=== PATIENT | female | born 1990 | race American Indian/Alaskan Native ===

== ENCOUNTER 2018-06-09 10:08 | Outpatient (CLI) | payer OTHER ==
--- NOTE | 2018-06-10 02:12 | XRay Report ---
PROCEDURE: XR SPINE LUMBOSACRAL 2-3V HISTORY: KYPHOSIS SCOLIOSIS FINDINGS: AP and lateral views of the lumbar spine were acquired. No fracture is seen in the lumbar s pine. The intervertebral disc space height preserved. There is scoliosis convex left at L4 of approxi mately 10 degrees. There are rods on the thoracic spine terminating inferiorly at T12. IMPRESSION: No fracture is seen in the lumbar spine This document is electronically signed by Celso Garrido MD., June 10 2018 02:10:06 AM ET
== END 2018-06-09 10:09 | disposition home or self-care (01) ==
LOC: XRAY 10:08
PROVIDERS: ATTEND Internal Medicine
DX: Z02.71 Encounter for disability determination (principal); M41.9 Scoliosis, unspecified; K21.9 Gastro-esophageal reflux disease without esophagitis
CPT/HCPCS: 72100

== ENCOUNTER 2021-08-23 20:07 | Emergency (ER) | payer MEDICAID, OTHER ==
[2021-08-24] MEDS ORDERED: KETOROLAC 10 MG TAB PO ONE (04:57)
[2021-08-24 05:33] LABS: Hematocrit 31.1 % (30.3-42.9); Hemoglobin 9.9 gm/dl (10.1-14.3); Mean Corpuscular HGB Conc 32 % (30-34); Platelet Count 150 K/mm3 (140-440); Red Blood Count 4.71 M/mm3 (3.65-5.03)
[2021-08-24 05:38] LABS: Mean Corpuscular Volume 66 fl (79-97)
[2021-08-24 05:39] LABS: Red Cell Distribution Width 22.7 % (13.2-15.2)
[2021-08-24 05:50] LABS: Blood Urea Nitrogen 11 mg/dL (7-17); Calcium 9.2 mg/dL (8.4-10.2); Hemolysis Index 0
--- NOTE | 2021-08-24 05:55 | XRay Report ---
LUMBAR SPINE 2 VIEWS INDICATION / CLINICAL INFORMATION: pain. COMPARISON: None available. FINDINGS: VERTEBRAE: No acute fracture. No significant malalignment. DISC SPACES / FACET JOINTS:No significant abnormality. PARASPINAL SOFT TISSUES:No significant abnormality. ADDITIONAL FINDINGS: Posterior fusion hardware with pedicle screws at T11 and T12. IMPRESSION: 1. No significant degenerative changes, no acute findings. Signer Name: Phani Lal II, MD Signed: 08/24/2021 5:50 AM Workstation Name: [id number]
[2021-08-24 05:57] LABS: BUN/Creatinine Ratio 18
--- NOTE | 2021-08-24 06:15 | Emergency Department Report ---
ED Back Pain/Injury HPI - General Chief Complaint: Pain General Stated Complaint: CHRONIC PAIN Time Seen by Provider: 08/24/21 04:25 Source: patient Limitations: No Limitations - History of Present Illness Initial Comments: 30 yo female with no pmh presents to ed for evaluation of back pain and fever. She states that in 2016, she had some illegal silicone injections in her margot ateral buttock then started to have problems with them in 2019. She states that over the past few months, the silicone feels like it has moved up to her lower back, and she is now having lower back pain and intermittent fevers. She denies injury, trauma, dysuria, abdominal pain, nausea, and vomiting. MD Complaint: back pain -: Gradual, week(s) (5-6) Similar Symptoms Previously: Yes Radiation: none Severity: severe Severity scale (0 -10): 8 Quality: aching Consistency: constant Associated Symptoms: denies: weakness, chest pain, numbness, difficulty walking, difficulty urinating, diaphoresis, headaches, abdominal pain, loss of appetite, malaise, nausea/vomiting, rash, seizure, shortness of breath - Related Data Previous Rx's Medication Instructions Recorded Last Taken Type Ibuprofen [Motrin 800 MG tab] 800 mg PO Q6H PRN #30 tablet 09/08/14 Unknown Rx oxyCODONE /ACETAMINOPHEN [Percocet 1 tab PO Q4HR #30 tablet 09/08/14 Unknown Rx 5/325 mg] Naproxen [Naprosyn] 500 mg PO BID #14 tab 08/24/21 Unknown Rx Allergies Allergy/AdvReac Type Severity Reaction Status Date / Time No Known Allergies Allergy Verified 09/02/14 23:12 ED Review of Systems ROS: Stated complaint: CHRONIC PAIN Other details as noted in HPI Comment: All other systems reviewed and negative Constitutional: fever. denies: chills, malaise, weakness Respiratory: denies: shortness of breath, SOB with exertion, SOB at rest, stridor, wheezing Cardiovascular: denies: chest pain, palpitations, dyspnea on exertion, orthopnea, edema, syncope, paroxysmal nocturnal dyspnea Gastrointestinal: denies: abdominal pain, nausea, vomiting Genitourinary: denies: urgency, dysuria, frequency, hematuria, discharge Musculoskeletal: back pain Skin: denies: rash, lesions Neurological: denies: headache, weakness Psychiatric: denies: anxiety, depression ED Past Medical Hx - Past Medical History Previous Medical History?: No Hx Hypertension: No Hx Diabetes: No Hx Deep Vein Thrombosis: No Hx Renal Disease: No Hx Sickle Cell Disease: No Hx Seizures: No Hx Asthma: No Hx HIV: No Additional medical history: scoliosis - spinal fusion - Surgical History Past Surgical History?: Yes Additional Surgical History: , spinal fusion, breast augmentation - Social History Smoking Status: Former Smoker Substance Use Type: Alcohol - Medications Home Medications: Home Medications Medication Instructions Recorded Confirmed Last Taken Type Ibuprofen [Motrin 800 MG tab] 800 mg PO Q6H PRN #30 tablet 09/08/14 Unknown Rx oxyCODONE /ACETAMINOPHEN [Percocet 1 tab PO Q4HR #30 tablet 09/08/14 Unknown Rx 5/325 mg] Naproxen [Naprosyn] 500 mg PO BID #14 tab 08/24/21 Unknown Rx ED Physical Exam - General Limitations: No Limitations General appearance: alert, in no apparent distress - Head Head exam: Present: atraumatic, normocephalic - Eye Eye exam: Present: normal appearance. Absent: conjunctival injection - Neck Neck exam: Present: normal inspection, full ROM. Absent: tenderness, meningismus, lymphadenopathy - Respiratory Respiratory exam: Present: normal lung sounds bilaterally. Absent: respiratory distress, wheezes, rales, rhonchi, stridor, chest wall tenderness - Cardiovascular Cardiovascular Exam: Present: tachycardia, normal heart sounds - GI/Abdominal GI/Abdominal exam: Present: soft, guarding, normal bowel sounds. Absent: distended, tenderness, rebound, rigid - Back Exam Back exam: Present: normal inspection, tenderness (bilateral lower). Absent: CVA tenderness (R), CVA tenderness (L), vertebral tenderness - Neurological Exam Neurological exam: Present: alert, oriented X3, CN II-XII intact, normal gait - Psychiatric Psychiatric exam: Present: normal affect, normal mood - Skin Skin exam: Present: warm, dry, intact ED Course Vital Signs 08/23/21 08/24/21 08/24/21 22:00 05:25 07:51 Temperature 98.1 F 98.1 F Pulse Rate 125 H 85 Respiratory 16 14 18 Rate Blood Pressure 131/97 Blood Pressure 131/89 [Right] O2 Sat by Pulse 98 97 Oximetry ED Medical Decision Making - Lab Data Result diagrams: 08/24/21 05:08 08/24/21 05:08 - Radiology Data Radiology results: report reviewed, image reviewed Xray lumbar spine: FINDINGS: VERTEBRAE: No acute fracture. No significant malalignment. DISC SPACES / FACET JOINTS:No significant abnormality. PARASPINAL SOFT TISSUES:No significant abnormality. ADDITIONAL FINDINGS: Posterior fusion hardware with pedicle screws at T11 and T12. IMPRESSION: 1. No significant degenerative changes, no acute findings. - Medical Decision Making 30 yo female with no pmh presents to ed for evaluation of back pain and fever. She states that in 2016, she had some illegal silicone injections in her bilateral buttock then started to have problems with them in 2019. She states that over the past few months, the silicone feels like it has moved up to her lower back, and she is now having lower back pain and intermittent fevers. She denies injury, trauma, dysuria, abdominal pain, nausea, and vomiting. Physical exam unremarkable. CBC, CMP, and lumbar xray wnl. Pain improved after medication, and she will be discharged home on Naproxen was advised to take medication as provided and follow up with pcp for further evaluation and star garcia. He verbalized understanding of and agreement with plan of care. Critical care attestation.: If time is entered above; I have spent that time in minutes in the direct care of this critically ill patient, excluding procedure time. ED Disposition Clinical Impression: Back pain Qualifiers: Back pain location: low back pain Chronicity: chronic Back pain laterality: bilateral Sciatica presence: without sciatica Qualified Code(s): M54.50 - Low back pain, unspecified Disposition: 01 HOME / SELF CARE / HOMELESS Is pt being admited?: No Does the pt Need Aspirin: No Condition: Stable Instructions: Chronic Back Pain, [id number] Additional Instructions: Take medication as prescribed. Follow-up with primary care provider for worsening symptoms. Return to the emergency department as needed. Prescriptions: Naproxen [Naprosyn] 500 mg PO BID #14 tab Referrals: ROSCOE BARNES MD [Staff Physician] - 3-5 Days Forms: Work/School Release Form(ED) Time of Disposition: 06:14
[2021-08-24 07:54] VITALS: BP 131/89
== END 2021-08-24 07:51 | disposition home or self-care (01) ==
LOC: ED 20:07
DX: M54.59 Other low back pain (principal); M41.9 Scoliosis, unspecified; Z98.890 Other specified postprocedural states; F17.290 Nicotine dependence, other tobacco product, uncomplicated
CPT/HCPCS: 36415; 72100; 80048; 85027; 99284